=== PATIENT | male | born 1990 | race African-American/Black ===

== ENCOUNTER 2020-04-27 07:38 | Emergency (ER) | payer OTHER ==
[2020-04-27] MEDS ORDERED: Acetaminophen 500 MG TAB ONE (07:58)
== END 2020-04-27 08:28 | disposition home or self-care (01) ==
LOC: ERS 07:38
DX: S40.012A Contusion of left shoulder, initial encounter (principal); J45.909 Unspecified asthma, uncomplicated; Z79.51 Long term (current) use of inhaled steroids; V43.52XA Car driver injured in collision with other type car in traffic accident, initial encounter
CPT/HCPCS: 99283

== ENCOUNTER 2020-05-04 16:01 | Emergency (ER) | payer OTHER ==
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
[2020-05-04] MEDS ORDERED: Ketorolac Tromethamine 30 MG/ML VIAL ONE (19:32)
== END 2020-05-04 21:10 | disposition home or self-care (01) ==
LOC: ERS 16:01
DX: R51.9 Headache, unspecified (principal); J45.909 Unspecified asthma, uncomplicated; F17.210 Nicotine dependence, cigarettes, uncomplicated; Z79.51 Long term (current) use of inhaled steroids
CPT/HCPCS: 70450; 96374; J1885